=== PATIENT | female | born 1940 | race Two or more races ===

== ENCOUNTER → 2017-07-04 | Outpatient (CLI) | payer OTHER ==
[~2017-07-04] MED LIST: ANTIVERT25 M1 PO; FENOFIBRATE145 MG; LEVAQUIN500 MG PO; LISINOPRIL5 MG; MEDROL4 MG PO; METFORMIN HCL500 MG; MOTRIN800 MG PO; ORPH100T PO; PHENAGIL TABLE1 EACH PO; PLAVIX75 MG; REFRESH OPTIVE1 EACH; SYNTHROID75 MCG
== END | disposition home or self-care (01) ==
LOC: LAB 07:49
DX: I11.0 Hypertensive heart disease with heart failure (principal); D53.8 Other specified nutritional anemias; E78.2 Mixed hyperlipidemia; N39.0 Urinary tract infection, site not specified; N36.2 Urethral caruncle; E04.0 Nontoxic diffuse goiter; R82.79 Other abnormal findings on microbiological examination of urine

== ENCOUNTER 2017-09-23 07:07 | Outpatient (CLI) | payer OTHER | END 2017-09-23 07:33 | disposition home or self-care (01) | LOC: LAB 07:07 | DX: N60.82 Other benign mammary dysplasias of left breast (principal); D68.59 Other primary thrombophilia; D68.61 Antiphospholipid syndrome; E72.11 Homocystinuria; E72.12 Methylenetetrahydrofolate reductase deficiency; D72.1 Eosinophilia; D51.8 Other vitamin B12 deficiency anemias; D51.1 Vitamin B12 deficiency anemia due to selective vitamin B12 malabsorption with proteinuria; D51.0 Vitamin B12 deficiency anemia due to intrinsic factor deficiency; I80.221 Phlebitis and thrombophlebitis of right popliteal vein; I10 Essential (primary) hypertension; E08.65 Diabetes mellitus due to underlying condition with hyperglycemia; I73.89 Other specified peripheral vascular diseases; D52.8 Other folate deficiency anemias; D50.8 Other iron deficiency anemias; R97.0 Elevated carcinoembryonic antigen [CEA]; E55.9 Vitamin D deficiency, unspecified; C50.812 Malignant neoplasm of overlapping sites of left female breast ==

== ENCOUNTER → 2017-10-15 07:44 | Outpatient (CLI) | payer OTHER | END | disposition home or self-care (01) | LOC: LAB 07:44 | DX: I10 Essential (primary) hypertension (principal); R82.79 Other abnormal findings on microbiological examination of urine; D53.8 Other specified nutritional anemias; E78.2 Mixed hyperlipidemia; E11.9 Type 2 diabetes mellitus without complications; E04.0 Nontoxic diffuse goiter; N39.0 Urinary tract infection, site not specified; N36.2 Urethral caruncle ==

== ENCOUNTER → 2018-01-30 12:51 | Outpatient (CLI) | payer OTHER | END | disposition home or self-care (01) | LOC: LAB 12:51 | DX: N39.0 Urinary tract infection, site not specified (principal) ==

== ENCOUNTER 2018-03-25 07:33 | Outpatient (CLI) | payer OTHER | END 2018-03-25 07:40 | disposition home or self-care (01) | LOC: LAB 07:33 | DX: N60.82 Other benign mammary dysplasias of left breast (principal); D68.61 Antiphospholipid syndrome; E72.11 Homocystinuria; E72.12 Methylenetetrahydrofolate reductase deficiency; D72.1 Eosinophilia; D51.8 Other vitamin B12 deficiency anemias; D51.1 Vitamin B12 deficiency anemia due to selective vitamin B12 malabsorption with proteinuria; I80.221 Phlebitis and thrombophlebitis of right popliteal vein; I10 Essential (primary) hypertension; E08.65 Diabetes mellitus due to underlying condition with hyperglycemia; I73.89 Other specified peripheral vascular diseases; D52.8 Other folate deficiency anemias; D50.8 Other iron deficiency anemias; E55.9 Vitamin D deficiency, unspecified; K90.89 Other intestinal malabsorption; R97.0 Elevated carcinoembryonic antigen [CEA]; R97.8 Other abnormal tumor markers ==

== ENCOUNTER 2018-05-15 08:20 | Outpatient (CLI) | payer OTHER | END 2018-05-15 08:28 | disposition home or self-care (01) | LOC: LAB 08:20 | DX: I11.9 Hypertensive heart disease without heart failure (principal); E78.2 Mixed hyperlipidemia; E11.9 Type 2 diabetes mellitus without complications; E04.0 Nontoxic diffuse goiter; N39.0 Urinary tract infection, site not specified; D64.89 Other specified anemias ==

== ENCOUNTER 2018-05-16 08:52 | Outpatient (CLI) | payer OTHER | END 2018-05-16 08:57 | disposition home or self-care (01) | LOC: LAB 08:52 | DX: Z12.11 Encounter for screening for malignant neoplasm of colon (principal) ==

== ENCOUNTER 2018-08-21 07:09 | Outpatient (CLI) | payer OTHER | END 2018-08-21 07:15 | disposition home or self-care (01) | LOC: LAB 07:09 | DX: E11.9 Type 2 diabetes mellitus without complications (principal); E78.2 Mixed hyperlipidemia ==

== ENCOUNTER 2018-09-22 08:06 | Outpatient (CLI) | payer OTHER | END 2018-09-22 12:53 | disposition home or self-care (01) | LOC: LAB 08:06 | DX: D72.1 Eosinophilia (principal); E72.11 Homocystinuria; E72.12 Methylenetetrahydrofolate reductase deficiency; N60.82 Other benign mammary dysplasias of left breast; D51.8 Other vitamin B12 deficiency anemias; D51.1 Vitamin B12 deficiency anemia due to selective vitamin B12 malabsorption with proteinuria; D51.0 Vitamin B12 deficiency anemia due to intrinsic factor deficiency; I80.221 Phlebitis and thrombophlebitis of right popliteal vein; I10 Essential (primary) hypertension; I73.89 Other specified peripheral vascular diseases; D52.8 Other folate deficiency anemias; D50.8 Other iron deficiency anemias; K90.89 Other intestinal malabsorption; E03.8 Other specified hypothyroidism; R97.0 Elevated carcinoembryonic antigen [CEA]; R97.8 Other abnormal tumor markers; D53.8 Other specified nutritional anemias; E78.2 Mixed hyperlipidemia; E04.0 Nontoxic diffuse goiter; E11.9 Type 2 diabetes mellitus without complications; N39.0 Urinary tract infection, site not specified ==

== ENCOUNTER → 2018-11-25 06:46 | Outpatient (CLI) | payer OTHER | END | disposition home or self-care (01) | LOC: LAB 06:46 | DX: I11.9 Hypertensive heart disease without heart failure (principal); E78.2 Mixed hyperlipidemia ==

== ENCOUNTER 2019-02-09 09:36 | Emergency (ER) | payer OTHER ==
[~2019-02-09] VITALS: Ht 162.6 cm; Wt 72.6 kg
[2019-02-09] MEDS ORDERED: NITROFURANTOIN100 MG PO (14:10)
[2019-02-09] MEDS ORDERED: KETO10TA2 PO (14:10)
[2019-02-09] MEDS ORDERED: URIN D.S. TABL1 EACH PO (14:10)
== END 2019-02-09 14:14 | disposition home or self-care (01) ==
LOC: ER 09:36
DX: N39.0 Urinary tract infection, site not specified (principal); B96.29 Other Escherichia coli [E. coli] as the cause of diseases classified elsewhere

== ENCOUNTER 2019-03-24 06:49 | Outpatient (CLI) | payer OTHER ==
[~2019-03-24 06:49] MED LIST changes: +KETO10TA2 PO; +NITROFURANTOIN100 MG PO; +URIN D.S. TABL1 EACH PO
== END 2019-03-24 07:04 | disposition home or self-care (01) ==
LOC: LAB 06:49
DX: D72.1 Eosinophilia (principal); E72.11 Homocystinuria; E72.12 Methylenetetrahydrofolate reductase deficiency; N60.82 Other benign mammary dysplasias of left breast; D51.8 Other vitamin B12 deficiency anemias; D51.1 Vitamin B12 deficiency anemia due to selective vitamin B12 malabsorption with proteinuria; D51.0 Vitamin B12 deficiency anemia due to intrinsic factor deficiency; I80.221 Phlebitis and thrombophlebitis of right popliteal vein; I11.0 Hypertensive heart disease with heart failure; E08.65 Diabetes mellitus due to underlying condition with hyperglycemia; I73.89 Other specified peripheral vascular diseases; D52.8 Other folate deficiency anemias; K90.89 Other intestinal malabsorption; R97.8 Other abnormal tumor markers; R97.0 Elevated carcinoembryonic antigen [CEA]; E03.8 Other specified hypothyroidism; R19.5 Other fecal abnormalities; D50.0 Iron deficiency anemia secondary to blood loss (chronic); I10 Essential (primary) hypertension; E78.2 Mixed hyperlipidemia; N36.2 Urethral caruncle; E04.0 Nontoxic diffuse goiter; D53.8 Other specified nutritional anemias; N39.0 Urinary tract infection, site not specified

== ENCOUNTER 2019-04-06 07:28 | Outpatient (CLI) | payer OTHER | END 2019-04-06 07:31 | disposition home or self-care (01) | LOC: RAD 07:28 | DX: M76.61 Achilles tendinitis, right leg (principal) ==

== ENCOUNTER 2019-05-22 08:39 | Outpatient (CLI) | payer OTHER | END 2019-05-22 08:46 | disposition home or self-care (01) | LOC: NUCLEAR 08:39 | DX: I20.8 Other forms of angina pectoris (principal) | CPT/HCPCS: 78452; 93017; A9500; J0153 ==

== ENCOUNTER → 2019-07-27 06:47 | Outpatient (CLI) | payer OTHER | END | disposition home or self-care (01) | LOC: LAB 06:47 | DX: I11.0 Hypertensive heart disease with heart failure (principal); D53.9 Nutritional anemia, unspecified; E78.2 Mixed hyperlipidemia; N39.0 Urinary tract infection, site not specified; E04.8 Other specified nontoxic goiter; E11.9 Type 2 diabetes mellitus without complications; C51.2 Malignant neoplasm of clitoris ==

== ENCOUNTER 2019-09-15 06:55 | Outpatient (CLI) | payer OTHER | END 2019-09-15 07:17 | disposition home or self-care (01) | LOC: LAB 06:55 | DX: D68.61 Antiphospholipid syndrome (principal); D72.1 Eosinophilia; E72.12 Methylenetetrahydrofolate reductase deficiency; N60.82 Other benign mammary dysplasias of left breast; D51.8 Other vitamin B12 deficiency anemias; D51.1 Vitamin B12 deficiency anemia due to selective vitamin B12 malabsorption with proteinuria; D51.0 Vitamin B12 deficiency anemia due to intrinsic factor deficiency; I80.221 Phlebitis and thrombophlebitis of right popliteal vein; I10 Essential (primary) hypertension; E08.65 Diabetes mellitus due to underlying condition with hyperglycemia; I73.89 Other specified peripheral vascular diseases; D52.8 Other folate deficiency anemias; R97.8 Other abnormal tumor markers; E55.9 Vitamin D deficiency, unspecified; K90.89 Other intestinal malabsorption; E03.8 Other specified hypothyroidism ==

== ENCOUNTER 2020-03-22 07:28 | Outpatient (CLI) | payer OTHER | END 2020-03-22 07:33 | disposition home or self-care (01) | LOC: LAB 07:28 | PROVIDERS: ATTEND Internal Medicine Hematology & Oncology | DX: D50.8 Other iron deficiency anemias (principal); D72.19 Other eosinophilia; E72.12 Methylenetetrahydrofolate reductase deficiency; E72.11 Homocystinuria; N60.82 Other benign mammary dysplasias of left breast; D51.8 Other vitamin B12 deficiency anemias; D51.0 Vitamin B12 deficiency anemia due to intrinsic factor deficiency; D51.1 Vitamin B12 deficiency anemia due to selective vitamin B12 malabsorption with proteinuria; I80.221 Phlebitis and thrombophlebitis of right popliteal vein; E08.65 Diabetes mellitus due to underlying condition with hyperglycemia; I10 Essential (primary) hypertension; D52.8 Other folate deficiency anemias; E78.49 Other hyperlipidemia; R97.0 Elevated carcinoembryonic antigen [CEA]; C50.112 Malignant neoplasm of central portion of left female breast; N39.0 Urinary tract infection, site not specified ==

== ENCOUNTER 2020-05-14 09:11 | Outpatient (CLI) | payer OTHER | END 2020-05-14 15:00 | disposition home or self-care (01) | LOC: LAB 09:11 | PROVIDERS: ATTEND Internal Medicine Cardiovascular Disease | DX: I11.9 Hypertensive heart disease without heart failure (principal); E78.00 Pure hypercholesterolemia, unspecified ==

== ENCOUNTER 2020-06-16 07:49 | Outpatient (CLI) | payer OTHER | END 2020-06-16 07:55 | disposition home or self-care (01) | LOC: LAB 07:49 | PROVIDERS: ATTEND Internal Medicine Endocrinology, Diabetes & Metabolism | DX: D53.8 Other specified nutritional anemias (principal); N39.0 Urinary tract infection, site not specified; I11.0 Hypertensive heart disease with heart failure; E04.8 Other specified nontoxic goiter; E78.2 Mixed hyperlipidemia; E11.9 Type 2 diabetes mellitus without complications; N36.2 Urethral caruncle ==

== ENCOUNTER 2020-08-16 08:20 | Outpatient (CLI) | payer OTHER ==
[2020-08-17] MEDS ORDERED: LIPITOR40 MG (15:48)
[2020-08-17] MEDS ORDERED: SKELAXIN800 MG PO (18:07)
[2020-08-17] MEDS ORDERED: BACITRACIN-POL3.5 GM TOP (18:07)
[2020-08-17] MEDS ORDERED: ACETAMINOPHEN650 M2 PO (18:07)
== END 2020-08-16 08:29 | disposition home or self-care (01) ==
LOC: LAB 08:20
PROVIDERS: ATTEND Internal Medicine Cardiovascular Disease
DX: I11.9 Hypertensive heart disease without heart failure (principal); E78.1 Pure hyperglyceridemia

== ENCOUNTER 2020-08-17 15:38 | Emergency (ER) | payer OTHER ==
[~2020-08-17] VITALS: Ht 162.6 cm; Wt 72.6 kg
[2020-08-17] MEDS ORDERED: LIPITOR40 MG (15:48)
[2020-08-17] MEDS ORDERED: SKELAXIN800 MG PO (18:07)
[2020-08-17] MEDS ORDERED: ACETAMINOPHEN650 M2 PO (18:07)
[2020-08-17] MEDS ORDERED: BACITRACIN-POL3.5 GM TOP (18:07)
== END 2020-08-17 18:13 | disposition home or self-care (01) ==
LOC: ER 15:38
DX: S01.02XA Laceration with foreign body of scalp, initial encounter (principal); S30.0XXA Contusion of lower back and pelvis, initial encounter; W18.09XA Striking against other object with subsequent fall, initial encounter; Y93.E5 Activity, floor mopping and cleaning; Y92.018 Other place in single-family (private) house as the place of occurrence of the external cause; Y99.8 Other external cause status; Z79.01 Long term (current) use of anticoagulants

== ENCOUNTER 2020-09-26 07:22 | Outpatient (CLI) | payer OTHER ==
[~2020-09-26 07:22] MED LIST changes: +ACETAMINOPHEN650 M2 PO; +BACITRACIN-POL3.5 GM TOP; +LIPITOR40 MG; +SKELAXIN800 MG PO
== END 2020-09-26 07:27 | disposition home or self-care (01) ==
LOC: LAB 07:22
PROVIDERS: ATTEND Internal Medicine Hematology & Oncology
DX: D50.8 Other iron deficiency anemias (principal); R79.89 Other specified abnormal findings of blood chemistry; I10 Essential (primary) hypertension; R74.02 Elevation of levels of lactic acid dehydrogenase [LDH]; K76.89 Other specified diseases of liver; D51.8 Other vitamin B12 deficiency anemias; E55.9 Vitamin D deficiency, unspecified; E03.8 Other specified hypothyroidism; D68.59 Other primary thrombophilia; C50.919 Malignant neoplasm of unspecified site of unspecified female breast; R97.8 Other abnormal tumor markers; R97.0 Elevated carcinoembryonic antigen [CEA]; N39.0 Urinary tract infection, site not specified; D72.19 Other eosinophilia; N60.82 Other benign mammary dysplasias of left breast; D51.1 Vitamin B12 deficiency anemia due to selective vitamin B12 malabsorption with proteinuria; D51.0 Vitamin B12 deficiency anemia due to intrinsic factor deficiency; I80.221 Phlebitis and thrombophlebitis of right popliteal vein; I73.89 Other specified peripheral vascular diseases; D52.8 Other folate deficiency anemias

== ENCOUNTER → 2020-10-18 08:21 | Outpatient (CLI) | payer OTHER | END | disposition home or self-care (01) | LOC: LAB 08:21 | PROVIDERS: ATTEND Internal Medicine Endocrinology, Diabetes & Metabolism | DX: I11.0 Hypertensive heart disease with heart failure (principal); D53.8 Other specified nutritional anemias; N39.0 Urinary tract infection, site not specified; E78.2 Mixed hyperlipidemia; E03.8 Other specified hypothyroidism; E11.9 Type 2 diabetes mellitus without complications; I20.8 Other forms of angina pectoris ==

== ENCOUNTER → 2021-09-18 07:49 | Outpatient (CLI) | payer OTHER | END | disposition home or self-care (01) | LOC: LAB 07:49 | PROVIDERS: ATTEND Obstetrics & Gynecology Gynecology | DX: E55.9 Vitamin D deficiency, unspecified (principal) ==

== ENCOUNTER 2022-06-14 08:37 | Outpatient (CLI) | payer OTHER | END 2022-06-14 08:38 | disposition home or self-care (01) | LOC: LAB 08:37 | PROVIDERS: ATTEND Internal Medicine Endocrinology, Diabetes & Metabolism | DX: I10 Essential (primary) hypertension (principal); N39.0 Urinary tract infection, site not specified; E11.9 Type 2 diabetes mellitus without complications; E78.00 Pure hypercholesterolemia, unspecified; E04.9 Nontoxic goiter, unspecified; E55.9 Vitamin D deficiency, unspecified; E22.2 Syndrome of inappropriate secretion of antidiuretic hormone; I70.7 Atherosclerosis of other type of bypass graft(s) of the extremities ==

== ENCOUNTER → 2022-09-15 08:06 | Outpatient (CLI) | payer OTHER | END | disposition home or self-care (01) | LOC: LAB 08:06 | PROVIDERS: ATTEND Internal Medicine Endocrinology, Diabetes & Metabolism | DX: E04.9 Nontoxic goiter, unspecified (principal); I11.0 Hypertensive heart disease with heart failure; E78.2 Mixed hyperlipidemia; D53.1 Other megaloblastic anemias, not elsewhere classified; N39.0 Urinary tract infection, site not specified; N36.2 Urethral caruncle; E11.9 Type 2 diabetes mellitus without complications ==

== ENCOUNTER 2022-10-29 13:38 | Emergency (ER) | payer OTHER ==
[~2022-10-29] VITALS: Ht 165.1 cm; Wt 73.9 kg
[2022-10-29] MEDS ORDERED: DUI500 PO (14:07)
[2022-10-29] MEDS ORDERED: ZYRTEC10 MG PO (14:08)
== END 2022-10-29 14:26 | disposition home or self-care (01) ==
LOC: ER 13:38
DX: L03.115 Cellulitis of right lower limb (principal); Z88.0 Allergy status to penicillin; Z88.2 Allergy status to sulfonamides

== ENCOUNTER 2023-02-04 06:51 | Outpatient (CLI) | payer OTHER ==
[~2023-02-04 06:51] MED LIST changes: +DUI500 PO; +ZYRTEC10 MG PO
== END 2023-02-04 06:52 | disposition home or self-care (01) ==
LOC: LAB 06:51
PROVIDERS: ATTEND Internal Medicine
DX: D51.0 Vitamin B12 deficiency anemia due to intrinsic factor deficiency (principal); I71.21 Aneurysm of the ascending aorta, without rupture; I10 Essential (primary) hypertension; E78.9 Disorder of lipoprotein metabolism, unspecified; E72.11 Homocystinuria; E03.9 Hypothyroidism, unspecified; I80.01 Phlebitis and thrombophlebitis of superficial vessels of right lower extremity; E11.8 Type 2 diabetes mellitus with unspecified complications; E55.9 Vitamin D deficiency, unspecified; Z88.0 Allergy status to penicillin; Z88.2 Allergy status to sulfonamides

== ENCOUNTER → 2023-03-18 07:46 | Outpatient (CLI) | payer OTHER ==
[2023-03-18 08:29] LABS: PH,URINE 6.5 (5.0-8.0); URINE APPEARANCE Clear; URINE BILIRRUBIN Negative (NEGATIVE); URINE BLOOD Small; URINE COLOR Yellow; URINE GLUCOSE Negative (NEGATIVE); URINE LEUKOCYTE Large; URINE NITRATE Negative; URINE PROTEIN Negative (NEGATIVE); URINE UROBILINOGEN 0.2 E.U./dl
[2023-03-18 08:31] LABS: URINE BACTERIA 411.9 uL (0.0-1933); URINE EPITHELIAL CELLS 52.8 uL (0.0-38.8); URINE RBC 15.9 uL (0.0-20.8); URINE WBC 33.2 uL (0.0-23.2)
[2023-03-18 08:35] LABS: HEMATOCRIT 38.6 % (36.0-45.00); MEAN CELL VOLUME 90.5 fL (80.00-100.00); MEAN CORPUSCULAR HEMOGLOBIN 30.4 pg (27.00-32.0); MEAN CORPUSCULAR HGB CONC 33.6 g/dl (32.0-36.0); PLATELET COUNT 252 K/uL (150-450); RED BLOOD COUNT 4.27 M/uL (4.00-6.00); RED CELL DISTRIBUTION WIDTH 13.3 % (11.5-14.5)
[2023-03-18 09:21] LABS: ALBUMIN 3.5 gm/dL (3.4-5.0); BILIRUBIN TOTAL 0.69 mg/dL (0.3-1.2); CALCIUM 8.5 mg/dL (8.5-10.1); CHOL HDL RATIO 3.3 (0-5.0); CREATININE SERUM 0.6 mg/dL (0.55-1.02); GFR 95.24; GLOBULINA 3.2 G/DL (2.4-3.5); POTASSIUM 4.08 mEq/L (3.5-5.1); T4 FREE 1.22 NG/ML (0.76-1.46); TOTAL PROTEIN 6.7 gm/dL (6.4-8.2); TSH 0.585 uIU/mL (0.358-3.74)
== END | disposition home or self-care (01) ==
LOC: LAB 07:46
PROVIDERS: ATTEND Internal Medicine Endocrinology, Diabetes & Metabolism
DX: I10 Essential (primary) hypertension (principal); D53.9 Nutritional anemia, unspecified; N39.9 Disorder of urinary system, unspecified; E04.9 Nontoxic goiter, unspecified; E11.9 Type 2 diabetes mellitus without complications; N36.2 Urethral caruncle; E78.2 Mixed hyperlipidemia

== ENCOUNTER 2023-09-14 09:25 | Outpatient (CLI) | payer OTHER ==
[2023-09-14 10:44] LABS: HEMATOCRIT 37.7 % (36.0-45.00); HEMOGLOBIN 12.8 g/dL (12.0-15.00); MEAN CELL VOLUME 89.7 fL (80.00-100.00); MEAN CORPUSCULAR HEMOGLOBIN 30.6 pg (27.00-32.0); MEAN CORPUSCULAR HGB CONC 34.1 g/dl (32.0-36.0); PLATELET COUNT 299 K/uL (150-450); RED CELL DISTRIBUTION WIDTH 13.9 % (11.5-14.5)
[2023-09-14 10:47] LABS: PH,URINE 5.5 (5.0-8.0); URINE APPEARANCE Cloudy; URINE BILIRRUBIN Negative (NEGATIVE); URINE BLOOD Trace; URINE COLOR Yellow; URINE GLUCOSE Negative (NEGATIVE); URINE LEUKOCYTE Negative; URINE NITRATE Negative; URINE PROTEIN Negative (NEGATIVE); URINE UROBILINOGEN 0.2 E.U./dl
[2023-09-14 10:48] LABS: URINE RBC 23.2 uL (0.0-20.8); URINE WBC 4.3 uL (0.0-23.2)
[2023-09-14 11:29] LABS: ALBUMIN 3.9 gm/dL (3.4-5.0); BILIRUBIN TOTAL 0.67 mg/dL (0.3-1.2); CALCIUM 9.3 mg/dL (8.5-10.1); CHOL HDL RATIO 2.7 (0-5.0); CREATININE SERUM 0.69 mg/dL (0.55-1.02); FREE TRIODOTIRONINE 2.47 pg/ml (2.18-3.98); GFR 81.05; GLOBULINA 3.3 G/DL (2.4-3.5); POTASSIUM 4.13 mEq/L (3.5-5.1); T4 TOTAL 10.08 UG/DL (4.8-13.9); TOTAL PROTEIN 7.2 gm/dL (6.4-8.2); TSH 0.478 uIU/mL (0.358-3.74)
[2023-09-14 11:31] LABS: C-REACTIVE PROTEIN 0.94 MG/DL (0.00-0.29)
[2023-09-14 12:35] LABS: ob NEGATIVE (NEGATIVE)
== END 2023-09-14 09:45 | disposition home or self-care (01) ==
LOC: LAB 09:25
PROVIDERS: ATTEND Internal Medicine
DX: I71.21 Aneurysm of the ascending aorta, without rupture (principal); D51.0 Vitamin B12 deficiency anemia due to intrinsic factor deficiency; I10 Essential (primary) hypertension; E78.9 Disorder of lipoprotein metabolism, unspecified; E72.11 Homocystinuria; E03.9 Hypothyroidism, unspecified; I80.01 Phlebitis and thrombophlebitis of superficial vessels of right lower extremity; E11.8 Type 2 diabetes mellitus with unspecified complications

== ENCOUNTER 2023-09-14 10:44 | Emergency (ER) | payer OTHER ==
[~2023-09-14] VITALS: Ht 165.1 cm; Wt 73.5 kg
[2023-09-14] MEDS ORDERED: ORPHENADRINE CITRATE 30 MG/ML AMPUL IM STA (15:45)
== END 2023-09-14 16:07 | disposition home or self-care (01) ==
LOC: ER 10:44
DX: S33.5XXA Sprain of ligaments of lumbar spine, initial encounter (principal); W18.39XA Other fall on same level, initial encounter; Y93.89 Activity, other specified; Y92.238 Other place in hospital as the place of occurrence of the external cause; Y99.9 Unspecified external cause status; Z88.6 Allergy status to analgesic agent; Z88.0 Allergy status to penicillin; Z88.2 Allergy status to sulfonamides; E11.9 Type 2 diabetes mellitus without complications; Z79.84 Long term (current) use of oral hypoglycemic drugs; I10 Essential (primary) hypertension
CPT/HCPCS: 36415; 72070; 72100; 96372; 99284; J2360

== ENCOUNTER 2023-11-29 08:47 | Outpatient (CLI) | payer OTHER ==
[2023-11-29 09:57] LABS: HEMOGLOBIN 12.8 g/dL (12.0-15.00); MEAN CELL VOLUME 89.8 fL (80.00-100.00); MEAN CORPUSCULAR HEMOGLOBIN 31.2 pg (27.00-32.0); MEAN CORPUSCULAR HGB CONC 34.7 g/dl (32.0-36.0); PLATELET COUNT 269 K/uL (150-450); RED BLOOD COUNT 4.12 M/uL (4.00-6.00); RED CELL DISTRIBUTION WIDTH 13.7 % (11.5-14.5)
[2023-11-29 10:52] LABS: ALBUMIN 3.6 gm/dL (3.4-5.0); BILIRUBIN TOTAL 0.55 mg/dL (0.3-1.2); CALCIUM 8.9 mg/dL (8.5-10.1); CREATININE SERUM 0.59 mg/dL (0.55-1.02); GFR 97.11; GLOBULINA 3.3 G/DL (2.4-3.5); POTASSIUM 4.14 mEq/L (3.5-5.1); TOTAL PROTEIN 6.9 gm/dL (6.4-8.2)
[2023-11-29 11:15] LABS: FOLIC ACID > 20.00 ng/ml (4.78-20); VITAMIN D3 25 HYDROXY 54.85 ng/ml (30-120)
[2023-11-29 13:31] LABS: MANUAL PLATELET COUNT 428
[2023-11-29 13:32] LABS: PLATELET ESTIMATE NORMAL (NORMAL)
[2023-12-18 07:58] LABS: HOMOCYSTEINE 5.9
[2023-12-18 07:59] LABS: CA 15-3 21.1
[2023-12-18 08:01] LABS: CA 125 6.8
== END 2023-11-29 08:50 | disposition home or self-care (01) ==
LOC: LAB 08:47
PROVIDERS: ATTEND Internal Medicine Hematology & Oncology
DX: D68.61 Antiphospholipid syndrome (principal); D72.10 Eosinophilia, unspecified; E72.12 Methylenetetrahydrofolate reductase deficiency; N60.82 Other benign mammary dysplasias of left breast; D51.8 Other vitamin B12 deficiency anemias; D51.0 Vitamin B12 deficiency anemia due to intrinsic factor deficiency; I80.221 Phlebitis and thrombophlebitis of right popliteal vein; I10 Essential (primary) hypertension; E09.65 Drug or chemical induced diabetes mellitus with hyperglycemia; I73.9 Peripheral vascular disease, unspecified; D52.9 Folate deficiency anemia, unspecified; R97.8 Other abnormal tumor markers

== ENCOUNTER 2023-12-04 08:05 | Outpatient (CLI) | payer OTHER ==
[2023-12-04 09:12] LABS: URINE APPEARANCE Clear; URINE BILIRRUBIN Negative (NEGATIVE); URINE BLOOD Negative; URINE COLOR Yellow; URINE GLUCOSE Negative (NEGATIVE); URINE LEUKOCYTE Negative; URINE NITRATE Negative; URINE PROTEIN Negative (NEGATIVE); URINE UROBILINOGEN 0.2 E.U./dl
[2023-12-04 09:17] LABS: URINE BACTERIA 312.2 uL (0.0-1933); URINE EPITHELIAL CELLS 25.6 uL (0.0-38.8); URINE RBC 6.8 uL (0.0-20.8)
[2023-12-04 09:28] LABS: CHOL HDL RATIO 2.8 (0-5.0); T4 TOTAL 9.14 UG/DL (4.8-13.9); TSH 0.681 uIU/mL (0.358-3.74)
[2023-12-04 09:29] LABS: C-REACTIVE PROTEIN 0.48 MG/DL (0.00-0.29)
[2023-12-04 09:30] LABS: URINE WBC 1.5 uL (0.0-23.2)
[2023-12-04 09:44] LABS: ob NEGATIVE (NEGATIVE)
== END 2023-12-04 08:15 | disposition home or self-care (01) ==
LOC: LAB 08:05
PROVIDERS: ATTEND Internal Medicine
DX: I71.21 Aneurysm of the ascending aorta, without rupture (principal); R73.9 Hyperglycemia, unspecified; E78.9 Disorder of lipoprotein metabolism, unspecified; I10 Essential (primary) hypertension; Z12.10 Encounter for screening for malignant neoplasm of intestinal tract, unspecified; E03.9 Hypothyroidism, unspecified; I80.01 Phlebitis and thrombophlebitis of superficial vessels of right lower extremity; E72.11 Homocystinuria; D51.0 Vitamin B12 deficiency anemia due to intrinsic factor deficiency; E11.8 Type 2 diabetes mellitus with unspecified complications

== ENCOUNTER 2023-12-16 07:17 | Outpatient (CLI) | payer OTHER | END 2023-12-16 07:25 | disposition home or self-care (01) | LOC: MRI 07:17 | PROVIDERS: ATTEND Internal Medicine | DX: M25.562 Pain in left knee (principal) | CPT/HCPCS: 73721 ==